=== PATIENT | female | born 1995 | race Caucasian/White ===

== ENCOUNTER 2017-01-13 16:08 | Outpatient (CLI) | payer OTHER ==
[2017-01-13] MEDS ORDERED: LACTATED RINGERS 500 ML IV ONE (16:35)
[2017-01-13 16:43] VITALS: BP 130/81
[2017-01-13 17:11] LABS: Urine Drugs of Abuse Note Disclamer
[2017-01-13 17:26] LABS: Bilirubin,Urine NEG (Negative); Blood,Urine NEG (Negative); Ketones,Urine NEG (Negative); Leukocyte Esterase,Urine SM (Negative); Mucus,Urine FEW /HPF; Nitrite,Urine NEG (Negative); Urobilinogen,Urine < 2.0 mg/dL (<2.0)
[2017-01-13] MEDS ORDERED: PROCARDIA*For Tocolysis only PO ONE (17:45)
== END 2017-01-13 19:13 ==
LOC: TRG 16:08
PROVIDERS: ATTEND Obstetrics & Gynecology
DX: O47.03 False labor before 37 completed weeks of gestation, third trimester (principal); Z3A.34 34 weeks gestation of pregnancy
CPT/HCPCS: 59025; 80307; 81001; 96360; J7120

== ENCOUNTER 2017-01-14 14:37 | Outpatient (CLI) | payer OTHER ==
[2017-01-14 15:42] VITALS: BP 120/80
--- NOTE | 2017-01-15 08:24 | Ultrasound Report ---
BIOPHYSICAL PROFILE: INDICATION: BPP. COMPARISON: None similar at this institution. TECHNIQUE: Transabdominal ultrasound with Doppler interrogation. 2 - breathing movements 2 - movements 2 - posture and tone 2 - Qualitative amniotic fluid volume 8 - TOTAL SCORE OF POSSIBLE 8 Heart Rate (bpm) 153
== END 2017-01-14 17:40 | disposition home or self-care (01) ==
LOC: TRG 14:37
PROVIDERS: ATTEND Obstetrics & Gynecology
DX: O47.03 False labor before 37 completed weeks of gestation, third trimester (principal); Z3A.34 34 weeks gestation of pregnancy
CPT/HCPCS: 76819